=== PATIENT | male | born 1960 | race Caucasian/White ===

== ENCOUNTER 2016-09-16 03:38 | Emergency (ER) | payer OTHER ==
[~2016-09-16] VITALS: Ht 185.4 cm; Wt 118.2 kg
[~2016-09-16 03:38] MED LIST: AMLO10TA3 PO; TEST200K IM
[2016-09-16 03:48] VITALS: BP 181/120; PULSE 96; RESP 16; O2SAT 97
--- NOTE | 2016-09-16 04:34 | ED.REPORT ---
HPI-Neck Pain Free Text HPI Notes Sep 16, 2016 ED Provider: Mihir Haji MD A 55 year old male with a history of hypertension and recent left knee surgery presents to the ED complaining of neck pain. The pain begins at the back of his head and radiates down his left arm. This began one week ago and has worsened since. He saw a chiropractor one week ago, which did not help. The pain worsened to the point that he could not work two days ago. He saw the chiropractor again at this point, who recommended that he come to the ED. Ibuprofen did not help his pain. The pt denies injury. He also denies numbness, tingling, weakness and fever. Nursing Notes Stated Complaint: NECK & ARM PAIN Chief Complaint: General Complaint Nursing Notes Reviewed: Yes Allergies: Coded Allergies: Penicillins (Verified Allergy, Unknown, fever, dermatitis, 07/25/16) Scheduled Amlodipine (Amlodipine) 10 Mg Tablet 10 MG PO DAILY Testosterone Cypionate (Testone Cik) 200 Mg/Ml Kit 50 MG IM [id number] General Time Seen by Provider: 04:29 Chief Complaint Neck pain Hx Obtained From: Patient Arrived By: Walk-in Sudden in Onset?: No Onset Occurred: 6 days ago Symptom Duration: Since onset Recent Healthcare: No recent hospitalization, Recent doctor visit Similar Sx Previous: No Past Medical History Past Medical History hypertension Past Surgical History left knee Reports: Tonsillectomy Smoking History Former Smoker Social History chewing tobacco Alcohol Use: "Social" Other Social History: Good social support Ambulatory Status Independent Review of Systems Review of Systems Note: denies tingling Constitutional: Denies: Chills, Fever Respiratory: Denies: Non-productive cough, Shortness of breath Cardiovascular: Denies: Chest pain GI: Denies: Abdominal pain Musculoskeletal: Reports: Extremity pain, Neck pain Skin: Denies Rash Neurologic: Denies: Numbness, Weakness Complete sys rev & neg: except as marked. Physical Exam Initial Vital Signs Vital Signs (First) Date Time Temp Pulse Resp B/P Pulse Ox O2 Delivery O2 Flow Rate FiO2 09/16/16 03:48 36.1 96 16 181/120 97 Room Air Initial VS: Reviewed, Vital signs abnormal General/Constitutional: Awake, Alert Neck: Atraumatic neck tender on the left side Neurologic: Oriented X3, Speech NL, No motor deficits, No sensory deficits ENT: Atraumatic, Airway patent, Mucous membranes moist Respiratory / Chest: Atraumatic, Breath sounds NL, Breath sounds = bilat, No respiratory distress Cardiovascular: Heart rate NL, Regular rhythm, Heart sounds NL Back: Atraumatic, Full range of motion Upper Extremity / MS: Atraumatic tender spasm in left trapezius strength normal pain in ulnar distribution Skin: Atraumatic, Color NL, No rash, Warm, Dry Head / Eyes: Atraumatic, Normocephalic, PERRL, EOMI Abdomen: Atraumatic, Soft, Non-tender Lower Extremity / Pelvis / MS: Atraumatic, Full range of motion Psychiatric: Affect NL, Mood NL Interpretation & Diagnostics Lab Results Interpretation Result Diagram: 09/16/16 0550 Test 09/16/16 05:50 White Blood Count 7.8th/mm3 (3.8-10.1) Red Blood Count 5.04mil/mm3 (4.40-5.80) Hemoglobin 15.7g/dL (13.8-17.2) Hematocrit 46.5% (41.0-50.0) Mean Corpuscular Volume 92.3fL (81-100) Mean Corpuscular Hemoglobin 31.2pg (27.0-35.0) Mean Corpuscular Hemoglobin Concent 33.8% (32.0-37.0) Red Cell Distribution Width 12.8% (12.3-15.4) Platelet Count 333bil/L (150-400) Neutrophils (%) (Auto) 46.4% (40-74) Lymphocytes (%) (Auto) 43.5% (14-46) Monocytes (%) (Auto) 7.2% (4-12) Eosinophils (%) (Auto) 2.1% (0-5) Basophils (%) (Auto) 0.4% (0-3) Lab values outside NL range: no clinical significance. Re-Eval/Medical Decision Med Decision/Clinical Course 55-year-old male with severe left-sided cervical radiculopathy. He was initially evaluated by me, and pain medicine orders were written. His care will be turned over change of shift to Dr. Hooks for further evaluation and treatment. Source of Hx: Old records Counseled Regarding: Diagnosis, Lab results, Need for follow-up, When/why to return to ED Discharge & Departure Shift Change Sign-Out Patient Care Transferred: Yes Discussed Complaint(s): Yes Laboratory Evaluation: Ordered, not yet done Primary Impression: Cervical radiculopathy Disposition: Home Discharge Condition All VS Reviewed: Yes Condition: Stable Referrals: Topher Ferrell ND (PCP) Care Transferred to: Dr. Hooks Care Transferred at: 06:00 ED Scribe Statement Portions of this note were transcribed by Hal Mcfarland. I, Dr. Haji personally performed the history, physical exam and medical decision-making; I reviewed and confirmed the accuracy of the information in the transcribed note. Signed by: Ghulam Cronin, 09/16/2016 and 06:05. copies to: Topher Ferrell ND, Howard L MD Sep 16, 2016 04:34 HAL MCFARLAND Sep 16, 2016 05:14 KATE CAMARGO Sep 16, 2016 06:35
[2016-09-16] MEDS ORDERED: Ondansetron 2 mg/mL 2 mL Inj IV PRN (05:00)
[2016-09-16] MEDS ORDERED: MethylprednisoLONE Sodium Succinate 62.5 mg/mL 2 mL Inj IVPUSH ONE (05:00)
[2016-09-16] MEDS: HYDROmorphone 0.5 mg/0.5 mL iSecure Syringe IVPUSH PRN ×2 (05:34→07:37)
[2016-09-16] MEDS ORDERED: 0.9% Sodium Chloride 1,000 ML IV ONE (05:50)
[2016-09-16] MEDS ORDERED: HYDROmorphone 1 mg/mL Inj IVPUSH ONE ×2 (06:10→08:00)
[2016-09-16 06:27] LABS: BASOPHILS % (AUTO) 0.4 % (0-3); EOSINOPHILS % (AUTO) 2.1 % (0-5); MONOCYTES % (AUTO) 7.2 % (4-12); Mean Corpuscular Hemoglobin 31.2 pg (27.0-35.0); Mean Corpuscular Volume 92.3 fL (81-100); NEUTROPHILS % (AUTO) 46.4 % (40-74); Platelet Count 333 bil/L (150-400)
--- NOTE | 2016-09-16 08:14 | DRSVH ---
PROCEDURE: X-RAY CERVICAL SPINE, 2 OR 3 VIEWS INDICATIONS: neck pain TECHNIQUE: 4 view(s) of the cervical spine were acquired. COMPARISON: None. FINDINGS: Bones: No fractures or dislocations to the C7 level. The lateral masses of C1 appear intact on the odontoid view. No suspicious bony lesions. There is mild to moderate degenerative disease C6-C7. Th ere is straightening of cervical curvature. Soft tissues: No prevertebral soft tissue swelling. IMPRESSION: 1. No fracture or dislocation. 2. Mild to moderate degenerative disc disease at C6-C7. Dictated by: Barbara Watson M.D. on 09/16/2016 at 8:12 Approved by: Barbara Watson M.D. on 09/16/2016 at 8:12
--- NOTE | 2016-09-16 08:56 | DRSVH ---
PROCEDURE: MRI CERVICAL SPINE WITHOUT CONTRAST ([id number]) INDICATIONS: severe neck pain, radiculopathy, no trauma TECHNIQUE: Noncontrast sagittal T1 spin echo and T2 fast spin echo, sagittal STIR, foraminal oblique sagittal T2 fast spin echo, and axial gradient echo or T2 fast spin echo through the cervical spine. COMPARISON: None. FINDINGS: Image quality: Marginal quality secondary to poor [id number]. Patient reported extreme pain and was unable to lower arms located during image acquisition which precluded the use of an anterior coil resulting in poor [id number]. Alignment and Curvature: There is normal bony alignment. There is straightening normal cervical spin e curvature. Bone Marrow: M mild reactive endplate changes adjacent to the C3-C4, C5-C6 and C6-C7 discs. Spinal Cord: Visualized spinal cord has normal size and signal. No cerebellar tonsillar herniation. Paraspinous Soft Tissues: No paravertebral masses. Prevertebral soft tissues are normal in thicknes s. C2-C3: Loss of the signal. No central stenosis. No neural foraminal narrowing. No neural impingement. Mild left facet hypertrophy. C3-C4: Loss of the signal and mild loss of disc height. Mild, diffuse disc bulge. No central stenosis . Mild bilateral uncovertebral joint hypertrophy. Mild right and moderate left neural foraminal narro wing secondary to disc and facet disease. No neural impingement. C4-C5: Loss of disc signal. Minimal, diffuse disc bulge. No central stenosis. Mild bilateral uncovert ebral joint hypertrophy. Mild bilateral neural foraminal narrowing secondary to disc disease and unco vertebral joint hypertrophy. No neural impingement. C5-C6: Loss of disc signal. Minimal, diffuse disc bulge. Moderate-sized left central disc extrusion. Extruded disc material impinges on the anterior margin of the cervical spinal cord and the exiting le ft C6 nerve roots. Moderate bilateral uncovertebral joint hypertrophy. Moderate to severe bilateral n eural foraminal narrowing secondary to disc disease and uncovertebral joint hypertrophy with slight f lattening deformity of the exiting C6 nerve roots bilaterally. C6-C7: Loss of the signal. Mild, diffuse disc bulge. Severe right and moderate left uncovertebral marilia nt hypertrophy. No central stenosis. Left foraminal disc protrusion is noted. Disc protrusion impinge s on the exiting left C7 nerve root. Severe bilateral neural foraminal narrowing secondary to disc di sease and uncovertebral joint hypertrophy with flattening deformity of the exiting C7 nerve roots reinier aterally. C7-T1: Loss of disc signal. Mild, diffuse disc bulge. Mild bilateral facet and uncovertebral joint hy pertrophy. No central stenosis Severe bilateral neural foraminal narrowing secondary to disc disease, uncovertebral joint hypertrophy and facet hypertrophy with flattening deformity of the exiting C8 ne rve roots bilaterally. T1-T2: Loss of the signal. Minimal, diffuse disc bulge. No central stenosis. No neural foraminal narr owing. No neural impingement. T2-T3: Loss of the signal. Mild, diffuse disc bulge. Mild bilateral facet hypertrophy. Severe bilater al neural foraminal narrowing secondary to disc disease and facet hypertrophy with flattening deformi ty of the T2 nerve roots bilaterally. IMPRESSION: 1. Multilevel degenerative disc disease. 2. Multilevel uncovertebral joint hypertrophy and facet arthropathy. 3. No central stenosis. 4. Mild bilateral C4-C5 neural foraminal narrowing. Moderate to severe bilateral C5-C6 neural foramin al narrowing. Severe bilateral C6-C7, C7-T1 and T2-T3 neural foraminal narrowing. 5. Flattening deformity of the exiting bilateral C6 nerve roots, bilateral C7 nerve roots, bilateral C8 nerve roots and bilateral T2 nerve root secondary to neural foraminal stenosis. Please correlate w ith clinical findings. 6. Moderate-sized left central C5-C6 disc extrusion. Extruded disc material impinges upon the anterio r left aspect of the cervical spinal cord causing mild flattening deformity and the exiting left C6 n erve roots. Please correlate with clinical findings. Dictated by: Ashley Salamanca MD, PhD on 09/16/2016 at 8:53 Approved by: Ashley Salamanca MD, PhD on 09/16/2016 at 8:53
[2016-09-16] MEDS ORDERED: OXYC1TAB24 PO (09:52)
[2016-09-16 10:10] VITALS: BP 144/85; PULSE 87; RESP 16; O2SAT 97
[2016-09-16] MEDS ORDERED: DXM4T PO (11:29)
[2016-10-24] MEDS ORDERED: TEST200V20 IM (11:33)
[2016-10-24] MEDS ORDERED: OXYC1TAB24 PO (11:33)
[2016-10-24] MEDS ORDERED: AMLO10TA3 PO (11:33)
[2016-10-24] MEDS ORDERED: DXM4T PO (11:33)
== END 2016-09-16 10:11 | disposition home or self-care (01) ==
LOC: SED 03:38
DX: M50.10 Cervical disc disorder with radiculopathy, unspecified cervical region (principal); I10 Essential (primary) hypertension; Z87.891 Personal history of nicotine dependence; Z88.0 Allergy status to penicillin
CPT/HCPCS: 36415; 72040; 72141; 80053; 83735; 85025; 85651; 96361; 96374; 96375; 96376; 99285; J1170; J2405; J2930; J7030

== ENCOUNTER 2016-10-28 06:29 | Day surgery (SDC) | payer OTHER ==
[~2016-10-28] VITALS: Ht 185.4 cm; Wt 118.8 kg
[2016-10-28] VITALS (11 sets, daily range): BP systolic 96–135; BP diastolic 52–88; PULSE 66–92; RESP 9–18; O2SAT 94–99
[~2016-10-28 06:29] MED LIST changes: +Bupivacaine Liposome 1.3% 20 mL Inj INFILTRATE ONE; +CeFAZolin Inj 3 GM in IV Premix IV ONE; +DXM4T PO; +Lactated Ringer's 1,000 ML IV ONE; +OXYC1TAB24 PO; -TEST200K IM; +TEST200V20 IM
[2016-10-28] MEDS ORDERED: Bupiv-Spinal 0.75%/Dex 8.25% 2 mL Inj ONE (06:30)
[2016-10-28] MEDS ORDERED: fentaNYL-PF 50 mCg/mL 2 mL Inj ONE (06:30)
[2016-10-28] MEDS ORDERED: Propofol 10,000 mCg/mL 20 mL Inj ONE (06:30)
[2016-10-28] MEDS ORDERED: CeFAZolin Inj 2 gm / 50mL D5W IV ONE (06:43)
[2016-10-28] MEDS ORDERED: Vancomycin 1,000mg/200 mL NS IV ONE (07:09)
[2016-10-28] MEDS ORDERED: CeFAZolin 2 Gm/50 mL D5W IV Premix IV ONE (07:15)
[2016-10-28] MEDS ORDERED: Ondansetron 2 mg/mL 2 mL Inj IVPUSH PRN (08:45)
[2016-10-28] MEDS ORDERED: HYDROmorphone 1 mg/mL Inj IVPUSH PRN (08:45)
[2016-10-28] MEDS ORDERED: fentaNYL-PF 50 mCg/mL 2 mL Inj IVPUSH PRN (08:45)
[2016-10-28] MEDS ORDERED: Atropine 0.4 mg/mL Inj IVPUSH PRN (08:45)
[2016-10-28] MEDS ORDERED: CeFAZolin Inj 2 GM in IV Premix 1 EACH IV ONE (08:45)
[2016-10-28] MEDS ORDERED: Lactated Ringer's 500 ML IV PRN (08:45)
[2016-10-28] MEDS ORDERED: MetoCLOpramide 5 mg/mL 2 mL Inj IVPUSH PRN (08:45)
[2016-10-28] MEDS ORDERED: EPHEDrine Sulfate 50 mg/mL Inj IVPUSH PRN (08:45)
[2016-10-28] MEDS ORDERED: Lactated Ringer's 1,000 ML IV SCH (08:45)
[2016-10-28] MEDS ORDERED: Phenylephrine 10,000 mCg/mL Inj IVPUSH PRN (08:45)
[2016-10-28] MEDS ORDERED: Labetalol 5 mg/mL 4 mL Inj IV PRN (08:45)
[2016-10-28] MEDS ORDERED: Vancomycin 1 Gm/200 mL NS Premix IV ONE (08:45)
[2016-10-28] MEDS ORDERED: hydrALAZINE 20 mg/mL Inj IVPUSH PRN (08:45)
[2016-10-28] MEDS ORDERED: Dexamethasone 4 mg/mL Inj IVPUSH PRN (08:45)
[2016-10-28] MEDS ORDERED: Gentamicin 40 mg/mL 2 mL Inj IRRIGATION ONE (09:10)
[2016-10-28] MEDS ORDERED: Bupivacaine-MPF 0.25%/EPI 30 mL Inj ARTICULAR ONE (09:45)
[2016-10-28] MEDS ORDERED: oxyCODONE-Acetamin 5-325 mg Tablet PO ONE (10:52)
--- NOTE | 2016-10-28 11:11 | DRSVH ---
PROCEDURE: X-RAY RIGHT KNEE, ONE OR TWO VIEWS ([id number]) INDICATIONS: POST RIGHT UNI KNEE TECHNIQUE: 2 views of the knee acquired. COMPARISON: [facility], , XR KNEE ARTHRITIC SERIES , 04/24/2016, 9:56. FINDINGS: Bones: Patient is status post right medial unicompartmental knee joint arthroplasty. Hardware compo nents are in expected positions with near-anatomic alignment. Visualized bony structures demonstrate no acute fractures. Soft tissues: Overlying postoperative changes are noted including joint fluid and gas, soft tissue e adelina and gas, and a surgical drain. IMPRESSION: 1. Expected postsurgical changes status post right medial unicompartmental arthroplasty. Dictated by: Alex Leos M.D. on 10/28/2016 at 11:07 Approved by: Alex Leos M.D. on 10/28/2016 at 11:09
--- NOTE | 2016-10-28 12:23 | PCM.ANEP1 ---
Post Anesthesia Phase 1 PACU Phase 1 Assessment Vital Signs Vital Signs Date Time Temp Pulse Resp B/P Pulse Ox O2 Delivery O2 Flow Rate FiO2 10/28/16 11:40 36.6 66 12 98/52 96 Room Air 10/28/16 11:00 70 10 131/69 97 Room Air 10/28/16 10:50 36.8 78 11 119/67 98 Room Air 10/28/16 10:40 86 10 114/66 95 Room Air 10/28/16 10:35 36.5 72 11 130/68 99 Room Air 10/28/16 10:30 76 14 113/54 94 Room Air 10/28/16 10:25 71 9 121/69 95 Room Air 10/28/16 10:20 12 96 10/28/16 10:20 67 10 111/66 94 Room Air 10/28/16 10:15 74 12 119/67 94 Room Air 10/28/16 10:12 36.4 67 11 96/72 96 Room Air 10/28/16 06:50 36.4 92 18 135/88 97 Room Air Anesthetic Administered: SAB Level of Alertness: Awake, talking METCALF's with Equal Strength: Yes Pain: No Nausea or Vomiting: No Oxygen Delivery: Room Air Lungs: Clear to Auscultation, Normal Air Movement Dermatome Level: Full Sensation Tomi Rogers MD Oct 28, 2016 12:23
--- NOTE | 2016-10-28 12:23 | PCM.ANEP2 ---
Post Anesthesia Evaluation ASA/CMS Post Anesthesia VS in Patient's Normal Range?: Yes Resp Stable; Airway Patent?: Yes CV Function & Hydration Stable: Yes Mental Status Recovered?: Yes Pain control Satisfactory?: Yes N/V Control Satisfactory?: Yes Tomi Rogers MD Oct 28, 2016 12:23
--- NOTE | 2016-10-28 12:23 | PCM.HPANE ---
Patient Data Surgeon Admitting Provider: Attending Provider:Travis Segovia MD Primary Care Physician:Topher Ferrell ND Other Provider:Neli Obrien Anesthesia Reason for Visit Right Knee Arthritis Ht/WT & BMI Height (Feet): 6 Height (Inches): 1 Weight (Kilograms): 118.8 Body Mass Index 34.00 Allergies Coded Allergies: Penicillins (Verified Allergy, Unknown, fever, dermatitis, 07/25/16) Past Anesthesia History Anesthesia History: Denies:: Anesthesia Reactions Diabetes History Hx Diabetes?: No MRSA MRSA: No Medications Hypertension Medication: Yes Home Meds Incl Beta Kimberley: No Reported Medications Testosterone Cypionate 200 Mg/1 Ml [id number] Mg IM [id number] 10/24/16 oxyCODONE-Acetaminophen 5-325 mg 1 Each Tablet1-2 Tab PO Q4H PRN For Pain Ref 0 10/24/16 Amlodipine 10 Mg [id number] Mg PO DAILY Ref 0 10/24/16 Discontinued Reported Medications Dexamethasone 4 Mg Tablet4 Mg PO BID Ref 0 10/24/16 Testosterone Cypionate (Testone Cik)200 Mg/Ml Kit50 Mg IM [id number] 07/25/16 Amlodipine 10 Mg [id number] Mg PO DAILY Ref 0 07/25/16 Discontinued Scripts Dexamethasone 4 Mg Tablet4 Mg PO BID #10 TABLET Ref 0 Prov:Ren Hooks MD 09/16/16 oxyCODONE-Acetaminophen 5-325 mg 1 Each Tablet1-2 Tab PO Q4H PRN For Pain #25 TABLET Prov:Ren Hooks MD 09/16/16 History History of ENT Problems?: No HEENT History: Denies:: Hearing Problem Hx of Heart Problems?: Yes Cardiovascular History: Positive for:: Hypertension Denies:: AICD Congestive Heart Failure Heart Murmur Irregular Heartbeat Pacemaker Peripheral Vascular Rheumatic Fever Hx of Respiratory Problem?: Yes Respiratory History: Positive for:: Use of C-PAP Machine Denies:: Asthma COPD Emphysema Oxygen Administration Pneumonia Tuberculosis Hx Neurologic Problems?: No Neurological History: Denies:: CVA Dementia Headaches Multiple Sclerosis Parkinson's Disease Seizures Hx of GI Problems?: No Gastrointestinal History: Denies:: Cirrhosis Gall Bladder Disease Gastroesphageal Reflux Gastrointestinal Bleeding Heartburn Hiatal Hernia Liver Disease Rectal Bleeding Hx of Problems?: No Genitourinary History: Denies:: Kidney Stones Urinary Tract Infection Male Hx: Denies:: Prostate Problems Skin History: Denies:: History Skin Disorders? Pressure Ulcers Hx Musculoskeletal Problems?: Yes Musculoskeletal History: Positive for:: Back Injury (recent neck strain extruded cervical disc- followed by neuro C7) Joint Replacement (left knee 07/2016) Musculoskeletal Trauma (right knee current admission problem) Osteoarthritis Hx of Psycho/Social Problems?: No Psycho Social History: Denies:: Anxiety Hx Depression Hx Surgeries?: Yes (left total knee, tonsils, knee arthroscopies) Hx Any Other Health Problems?: Yes Other History: Denies:: Cancer Thyroid Disease History Blood Transfusions: Positive for:: Accept Blood Products? Denies:: Blood Transfusions Hx Diabetes: No Hx Alcohol Use: YesAlcoholic Drinks Per Day: occasionalHx Substance Use: No Smoking Status: Former Smoker Have You Smoked inLast 12 mo: No Stop/Bang S-Snoring: Do You Snore Loudly: No T-Tired: feel tired, fatigued: Yes O-Obsered: Observed not breath: Yes P-Blood Pressure: treated: Yes B- Body Mass Index > 35 kg/m2: No A- Age over 50: Yes N- Neck Large Circumference: No G- Gender Male: Yes OVIDIO Total Score: 5 Risk Assessment Category Category 1A: Patient has history of documented sleep apnea, and HAS NOT received any narcotic, sedative or anesthesia administration during this stay. Category 1B: Patient has history of documented sleep apnea, and HAS received any narcotic , sedative or anesthesia administration during this stay Category 2: Patient has SUSPECTED Obstructive Sleep Apnea, and HAS received any narcotic , sedative or anesthesia administration during this stay. Category 3: Patient has SUSPECTED Obstructive Sleep Apnea and HAS NOT received narcotic, sedative or anesthesia administration during this stay. Category 4: Outpatient in Procedural Areas with known sleep apnea or who screen positive for High Risk via the STOP/BANG questionnaire. Exam Exam Vital Signs Vital Signs Date Time Temp Pulse Resp B/P Pulse Ox O2 Delivery O2 Flow Rate FiO2 10/28/16 06:50 36.4 92 18 135/88 97 Room Air General Appearance: Alert, Oriented X3, Cooperative, No Acute Distress HEENT/AIRWAY: MP 2, Neck Movement (Recent cervical radiculopathy, pain with extension and movement to the left), Mouth Opening (3 FBMO) Lungs: Clear to Auscultation, Normal Air Movement Heart: Exam Unremarkable, Regular Rate/Rhythm, No Murmurs/Rubs/Gallops Meds/Labs/Diagnostics Admission Meds Current Medications Lactated Ringer's (Lr) 1,000 ml @ 120 mls/hr [id number] ONCE IV Last administered on 10/28/16t 06:40; Start 10/28/16 at 05:00; Stop 10/28/16 at 13:19 Plan Impression Patient chart reviewed, patient interviewed and anesthestic plan with risks, benefits, and alternatives discussed, and informed consent obtained. NPO Status: 10/27 MN ASA Physical Status: ASA2 Mod Systemic Disease Anesthetic Plan: SAB Bene/Risks/Altern/Consents: Yes HP Complete Prior to Induction: Yes Other Will perform SAB so the patient can position his head himself during surgery and prevent cervical radiculopathy Tomi Rogers MD Oct 28, 2016 07:55
--- NOTE | 2016-10-29 01:06 | OP ---
[address] [address] OPERATIVE REPORT PATIENT: SHANTHI FOX : 1960 MR#: [id number] ADMIT: 10/28/2016 JOB ID: [id number] CORRECTED REPORT: DATE OF SURGERY: 10/28/2016 PREOPERATIVE DIAGNOSIS(ES): Advanced medial compartment osteoarthritis, right knee. POSTOPERATIVE DIAGNOSIS(ES): Advanced medial compartment osteoarthritis, right knee. PROCEDURE: Unicompartmental knee arthroplasty. SURGEON: Travis Segovia MD. ENGINEHOUSE BRAKEMAN: Christel Mora PA-C. Retail Pos Specialist required due to the major complexity of operation. INDICATIONS: This gentleman has had progressive disability unresponsive to conservative treatment. He elects to proceed with a unicompartment knee replacement. He understands and accepts the potential for risks and complications, which include, but is not limited to, infection, thromboembolic, neurovascular events, as well as potential for progressive arthritis in unresurfaced compartments and implant failure. Understanding these, he wishes to proceed. PROCEDURE: The patient was prepped and draped in usual sterile fashion. An anteromedial approach was made to the knee. Frontal bossing and a patellar osteophyte was removed from the knee. The tibial alignment apparatus was assembled and fixed in appropriate position and appropriate depth, and a corner pin was applied. The transverse and sagittal cuts were then made onto the pin and bone fragments were removed. A 9 spacer block was utilized and appropriate soft tissue tension and alignment was achieved. The femur was sized to a 7 chamfer cutting block fixed in appropriate position. Rotation and drill holes and chamfer cuts were made. Tibia was sized to a J, fixed in appropriate position and rotation. Trial reduction performed and a 9 mm polyethylene produced excellent alignment and soft tissue tension. All meniscal tissue and osteophytes were carefully removed from the knee. Pressurized lavage was followed by pressurized cementation. Excess cement was removed during the curing process. Final construct was assembled. Tourniquet was let down. Hemostasis was achieved. Deep Hemovac drain was left. The deep fascia was closed with #2 Quill, followed by a 2-0 Vicryl, 3-0, 4-0 intracuticular stitch. Cut margins have been injected with Marcaine and Exparel. Dilute Betadine solution was utilized to lavage the knee. Deep closure with #2 Quill, followed by 2-0 Vicryl, 3-0, and a 4-0 intracuticular stitch. Sterile dressings were applied. The patient was taken to the recovery room in stable condition. He tolerated the procedure well. There were no complications. ADDITIONAL INFORMATION: Procedure should be modified to say: Unicompartmental knee arthroplasty, medial compartment, right knee. Corrected by BD 12/06/16 3:08 pm addenda
== END 2016-10-28 23:59 | disposition home or self-care (01) ==
LOC: SAS 06:29
PROVIDERS: ATTEND Orthopaedic Surgery
DX: M17.11 Unilateral primary osteoarthritis, right knee (principal); M25.561 Pain in right knee; G47.33 Obstructive sleep apnea (adult) (pediatric); F17.210 Nicotine dependence, cigarettes, uncomplicated; F17.220 Nicotine dependence, chewing tobacco, uncomplicated
CPT/HCPCS: 27446; 73560; C1713; C1776; J0690; J1580; J2250; J3010; J3370; J7120